=== PATIENT | male | born 1995 | race Caucasian/White ===

== ENCOUNTER 2016-11-20 00:43 | Emergency (ER) | payer OTHER ==
[~2016-11-20] VITALS: Ht 188 cm; Wt 113.4 kg
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
[2016-11-20] MEDS ORDERED: CYCLOBENZAPRINE10 M1 PO (03:19)
[2016-11-20] MEDS ORDERED: IBUPROFEN800 M1 PO (03:19)
[2016-11-20] MEDS ORDERED: TRAMADOL HCL50 M1 PO (03:19)
[2016-11-20 03:28] VITALS: BP 155/83
== END 2016-11-20 03:30 ==
LOC: ERH 00:43
DX: S13.4XXA Sprain of ligaments of cervical spine, initial encounter (principal); M54.6 Pain in thoracic spine; V89.2XXA Person injured in unspecified motor-vehicle accident, traffic, initial encounter; Y92.488 Other paved roadways as the place of occurrence of the external cause
CPT/HCPCS: 72050; 72070; 72110; 96372; J1885; J3360